=== PATIENT | female | born 1955 ===

== ENCOUNTER 2017-07-07 06:23 | Day surgery (SDC) | payer OTHER | END 2017-07-07 11:45 | disposition home or self-care (01) | LOC: AMB-ENDOS 06:23 | DX: D12.3 Benign neoplasm of transverse colon (principal); K57.30 Diverticulosis of large intestine without perforation or abscess without bleeding; K64.1 Second degree hemorrhoids ==

== ENCOUNTER 2018-04-30 12:10 | Outpatient (CLI) | payer OTHER | END 2018-04-30 17:00 | disposition home or self-care (01) | LOC: MAMO-SONO 12:10 | DX: Z12.31 Encounter for screening mammogram for malignant neoplasm of breast (principal); N60.11 Diffuse cystic mastopathy of right breast; N60.12 Diffuse cystic mastopathy of left breast ==

== ENCOUNTER → 2018-08-31 | Day surgery (SDC) | payer OTHER | END | disposition home or self-care (01) | LOC: ADM 08-27 11:30 → AMB-ENDOS 08:34 | DX: D12.3 Benign neoplasm of transverse colon (principal); K64.1 Second degree hemorrhoids ==

== ENCOUNTER 2018-10-14 14:36 | Emergency (ER) | payer OTHER ==
[~2018-10-14] VITALS: Ht 152.4 cm; Wt 81.6 kg
[2018-10-14] MEDS ORDERED: FORTAMET500 MG (15:45)
[2018-10-14] MEDS ORDERED: KAPSPARGO SPRI100 MG (15:45)
[2018-10-14] MEDS ORDERED: ELIQUIS5 MG (15:45)
[2018-10-14] MEDS ORDERED: COZAAR25 MG ×2 (15:45→15:46)
[2018-10-14] MEDS ORDERED: GLIPIZIDE5 GM (15:46)
[2018-10-14] MEDS ORDERED: NORVASC5 MG (15:46)
== END 2018-10-14 22:31 | disposition home or self-care (01) ==
LOC: ER 14:36
DX: M79.672 Pain in left foot (principal)

== ENCOUNTER 2019-01-14 14:05 | Outpatient (CLI) | payer OTHER ==
[~2019-01-14 14:05] MED LIST: COZAAR25 MG; ELIQUIS5 MG; FORTAMET500 MG; GLIPIZIDE5 GM; KAPSPARGO SPRI100 MG; NORVASC5 MG
== END 2019-01-14 14:12 | disposition home or self-care (01) ==
LOC: SONOGRAMA 14:05
DX: E04.1 Nontoxic single thyroid nodule (principal)

== ENCOUNTER 2019-01-15 08:28 | Outpatient (CLI) | payer OTHER | END 2019-01-15 08:44 | disposition home or self-care (01) | LOC: LAB 08:28 | DX: E11.65 Type 2 diabetes mellitus with hyperglycemia (principal); E03.8 Other specified hypothyroidism; E78.2 Mixed hyperlipidemia; E55.9 Vitamin D deficiency, unspecified ==

== ENCOUNTER 2019-01-21 13:56 | Outpatient (CLI) | payer OTHER | END 2019-01-21 14:30 | disposition home or self-care (01) | LOC: NUCLEAR 13:56 | DX: M81.0 Age-related osteoporosis without current pathological fracture (principal) ==

== ENCOUNTER 2019-04-08 09:06 | Outpatient (CLI) | payer OTHER | END 2019-04-08 09:08 | disposition home or self-care (01) | LOC: SONOGRAMA 09:06 | DX: E04.1 Nontoxic single thyroid nodule (principal) ==

== ENCOUNTER 2021-05-13 13:38 | Outpatient (CLI) | payer OTHER | END 2021-05-13 13:47 | disposition home or self-care (01) | LOC: MAMO-SONO 13:38 | PROVIDERS: ATTEND Internal Medicine | DX: N60.11 Diffuse cystic mastopathy of right breast (principal); N60.12 Diffuse cystic mastopathy of left breast ==

== ENCOUNTER 2021-06-28 08:04 | Outpatient (CLI) | payer OTHER | END 2021-06-28 08:05 | disposition home or self-care (01) | LOC: LAB 08:04 | PROVIDERS: ATTEND Internal Medicine Endocrinology, Diabetes & Metabolism | DX: D64.9 Anemia, unspecified (principal); R10.9 Unspecified abdominal pain; E78.5 Hyperlipidemia, unspecified; E55.9 Vitamin D deficiency, unspecified; E03.9 Hypothyroidism, unspecified; E11.69 Type 2 diabetes mellitus with other specified complication; N39.0 Urinary tract infection, site not specified; R80.9 Proteinuria, unspecified; N18.32 Chronic kidney disease, stage 3b; Z03.818 Encounter for observation for suspected exposure to other biological agents ruled out ==

== ENCOUNTER 2022-04-25 10:58 | Outpatient (CLI) | payer OTHER | END 2022-04-25 14:32 | disposition home or self-care (01) | LOC: SONOGRAMA 10:58 | PROVIDERS: ATTEND Internal Medicine Endocrinology, Diabetes & Metabolism | DX: E04.1 Nontoxic single thyroid nodule (principal) ==

== ENCOUNTER 2022-05-20 10:08 | Outpatient (CLI) | payer OTHER | END 2022-05-20 10:09 | disposition home or self-care (01) | LOC: LAB 10:08 | PROVIDERS: ATTEND Internal Medicine | DX: I10 Essential (primary) hypertension (principal) ==

== ENCOUNTER 2022-07-05 15:26 | Outpatient (CLI) | payer OTHER | END 2022-07-05 15:31 | disposition home or self-care (01) | LOC: RAD 15:26 | PROVIDERS: ATTEND Internal Medicine | DX: R09.89 Other specified symptoms and signs involving the circulatory and respiratory systems (principal); Z13.9 Encounter for screening, unspecified ==

== ENCOUNTER 2022-12-15 09:57 | Outpatient (CLI) | payer OTHER | END 2022-12-15 10:02 | disposition home or self-care (01) | LOC: TOM 09:57 | PROVIDERS: ATTEND Internal Medicine | DX: R31.0 Gross hematuria (principal); N28.1 Cyst of kidney, acquired ==

== ENCOUNTER 2022-12-29 12:59 | Emergency (ER) | payer OTHER ==
[~2022-12-29] VITALS: Ht 152.4 cm; Wt 74.8 kg
[2022-12-29 17:22] LABS: HEMATOCRIT 35.7 % (36.0-45.00); HEMOGLOBIN 11.5 g/dL (12.0-15.00); MEAN CELL VOLUME 89.4 fL (80.00-100.00); MEAN CORPUSCULAR HEMOGLOBIN 28.8 pg (27.00-32.0); MEAN CORPUSCULAR HGB CONC 32.2 g/dl (32.0-36.0); PLATELET COUNT 217 K/uL (150-450); RED BLOOD COUNT 3.99 M/uL (4.00-6.00); RED CELL DISTRIBUTION WIDTH 16.3 % (11.5-14.5)
[2022-12-29 17:50] LABS: CALCIUM 8.8 mg/dL (8.5-10.1); GFR 10.91; POTASSIUM 3.39 mEq/L (3.5-5.1)
[2022-12-29 17:53] LABS: CREATININE SERUM 4.08 mg/dL (0.55-1.02)
== END 2022-12-29 21:44 | disposition home or self-care (01) ==
LOC: ER 12:59
DX: U07.1 COVID-19 (principal); K52.89 Other specified noninfective gastroenteritis and colitis; Z88.0 Allergy status to penicillin; Z88.6 Allergy status to analgesic agent
CPT/HCPCS: 36415; 96365; 99284; J2765; J3490

== ENCOUNTER 2023-06-06 10:57 | Outpatient (CLI) | payer OTHER | END 2023-06-06 11:00 | disposition home or self-care (01) | LOC: MAMO-SONO 10:57 | DX: Z12.31 Encounter for screening mammogram for malignant neoplasm of breast (principal) ==